=== PATIENT | male | born 2005 | race Caucasian/White ===

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

== ENCOUNTER 2025-01-01 09:38 | Emergency (ER) | payer BC | END 2025-01-01 11:05 | disposition home or self-care (01) | LOC: JD.ED 09:38 | DX: R55 Syncope and collapse (principal); S20.222A Contusion of left back wall of thorax, initial encounter; S30.0XXA Contusion of lower back and pelvis, initial encounter; Z86.16 Personal history of COVID-19; W01.198A Fall on same level from slipping, tripping and stumbling with subsequent striking against other object, initial encounter | CPT/HCPCS: 70450; 70450-26; 72128; 72128-26; 72131; 72131-26; 99284 ==